=== PATIENT | male | born 1945 | race Caucasian/White ===

== ENCOUNTER 2017-11-13 09:02 | Outpatient (CLI) | payer MEDICARE ==
--- NOTE | 2017-11-13 12:52 | XRAY Report ---
TWO-VIEW CHEST: 11/13/2017 CLINICAL INDICATION: Cough, fever. COMPARISON: 02/02/2006 FINDINGS: Frontal and lateral views of the chest demonstrate a normal cardiac silhouette. The lungs are clear. No effusion or pneumothorax is present. IMPRESSION: NORMAL CHEST. TD: 11/13/2017 12:51
== END 2017-11-13 09:03 | disposition home or self-care (01) ==
LOC: DI.S 09:02
PROVIDERS: ATTEND Nurse Practitioner Family
DX: R05 Cough (principal); R50.9 Fever, unspecified
CPT/HCPCS: 71046

== ENCOUNTER 2017-12-18 10:07 | Outpatient (CLI) | payer MEDICARE ==
--- NOTE | 2017-12-18 15:36 | MRI Report ---
EXAM: LEFT ANKLE/HINDFOOT MRI WITHOUT CONTRAST EXAM DATE: 12/18/2017 10:20 AM. CLINICAL HISTORY: History of left ankle fusion. Increasing pain. COMPARISON: Radiographs 10/22/2017. TECHNIQUE: Multiplanar, multisequence T1-weighted and fluid-sensitive sequences of the ankle/hindfoot without contrast. Other: None. FINDINGS: : Susceptibility artifact from internal fixation hardware at the distal tibia and fibula si gnificantly limits evaluation of that region. Bones: Postsurgical changes of distal fibular excision and arthrodesis at the tibiotalar joint. Ill-defined ovoid and linear focus of T1 hypointense and fluid sensitive hyperintense signal partiall y visualized in the medullary cavity distal tibial diaphysis measuring 2.5 cm in craniocaudal length (sagittal images 14). Moderate bone marrow edema partially visualized at the subtalar joint, likely degenerative. 1.4 cm os trigonum partially visualized. Possible bone marrow edema in the ossicles. Articular Cartilage: At least partial-thickness loss partially visualized at the subtalar joint. Mild cartilage loss in the midfoot. Ligaments: Significantly limited evaluation due to fixation hardware. Visualized portions of the delt oid and spring ligament are intact. Anterior Tendons: The tibialis anterior, extensor hallucis longus, and extensor digitorum longus tend ons are unremarkable. Medial Tendons: Tibialis posterior and flexor digitorum tendons are unremarkable. Mild thickening of the flexor hallucis longus tendon at the level of the calcaneus. Lateral Tendons: Limited evaluation due to artifact at the distal fibula. Mild thickening of the tere neus longus tendon at the tibial tubercle. Achilles Tendon: Minimal thickening. Musculature: No gross fatty atrophy or muscle edema. Other: No large joint effusion. Artifact obscures the sinus tarsi. Limited evaluation of the tarsal t unnel. Limited evaluation of the plantar fascia due to the [id number]. The subcutaneous tissues are unrem arkable. IMPRESSION: 1. Susceptibility artifact from fusion hardware at the tibiotalar joint significantly limits evaluati on of that region. 2. Ill-defined 2.5 cm region of marrow signal abnormality in the distal tibia. This is nonspecific an d may be postsurgical versus possible bone infarct. 3. 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 4. 1.4 cm os trigonum with possible micromotion. 5. Mild peroneus longus tendinopathy. 6. Minimal Achilles tendinopathy. [facility] MUSCULOSKELET[facility]IOLOGY SECTION Referring Provider Line: [phone] SITE ID: [id number]
== END 2017-12-18 10:08 | disposition home or self-care (01) ==
LOC: DI 10:07
PROVIDERS: ATTEND Registered Nurse
DX: M19.071 Primary osteoarthritis, right ankle and foot (principal); M67.972 Unspecified disorder of synovium and tendon, left ankle and foot; Z98.1 Arthrodesis status

== ENCOUNTER 2018-08-29 08:26 | Emergency (ER) | payer BC, MEDICARE ==
[2018-08-29] MEDS ORDERED: BENZONATATE 100 MG CAPSULE PO STA (08:48)
[2018-08-29] MEDS ORDERED: DEXAMETHASONE 10 MG/ML VIAL PO STA (08:48)
--- NOTE | 2018-08-29 08:51 | ED Physician Documentation ---
PD HPI URI - Stated complaint Stated Complaint: COUGH - Chief complaint Chief Complaint: Resp - History obtained from History obtained from: Patient, Family - History of Present Illness Timing - onset: How many weeks ago (1) Timing duration: Weeks (1) Timing details: Gradual onset, Still present Associated symptoms: Nasal congestion, Rhinorrhea, Sore throat, Dry cough Contributing factors: Sick contact Improves by: Rest, Medication Similar symptoms before: Diagnosis (bronchitis) Recently seen: Not recently seen - Additional information Additional information: 72-year-old male who does get bronchitis periodically, has developed a cough about 1 week ago and associated with this he has had some coughing paroxysms. Last night his coughing paroxysm was continuous until about 4 AM when he got up and went into his living room to sit up in his easy chair. This did help with his cough. He has noted that periodically his cough will be worse with the if he is laying down or worse when he sitting up. He notes a cough with deep breathing and feels the cough is coming from his central chest. Review of Systems Constitutional: denies: Fever, Chills, Myalgias Eyes: denies: Decreased vision Ears: denies: Ear pain Nose: reports: Rhinorrhea / runny nose, Congestion Throat: reports: Sore throat Cardiac: denies: Chest pain / pressure, Palpitations, Pedal edema, Calf pain Respiratory: reports: Cough. denies: Dyspnea, Wheezing GI: denies: Abdominal Pain, Nausea, Vomiting : denies: Dysuria, Frequency PD PAST MEDICAL HISTORY - Present Medications Home Medications: Ambulatory Orders Medication Instructions Recorded Confirmed Azithromycin [Zithromax] 250 mg PO DAILY #6 tablet 08/29/18 Benzonatate [Tessalon Perle] 100 - 200 mg PO TID PRN #30 capsule 08/29/18 Lisinopril 40 mg PO DAILY 08/29/18 08/29/18 - Allergies Allergies/Adverse Reactions: Allergies Allergy/AdvReac Type Severity Reaction Status Date / Time Penicillins Allergy Unknown Verified 08/29/18 08:58 PD ED PE NORMAL - Vitals Vital signs reviewed: Yes (hypertensive ) - General General: Alert and oriented X 3, No acute distress, Well developed/nourished, Other (The patient's coughing paroxysm has halted. ) - HEENT HEENT: Atraumatic, PERRL, EOMI, Other (The right TM is clear the left is dull, e rythematous over the umbo with rounding of the umbo. ) - Neck Neck: Supple, no meningeal sign, No bony TTP - Cardiac Cardiac: RRR, No murmur - Respiratory Respiratory: No respiratory distress, Clear bilaterally - Abdomen Abdomen: Soft, Non tender - Back Back: No CVA TTP, No spinal TTP - Derm Derm: Normal color, Warm and dry, No rash - Extremities Extremities: No deformity, No edema - Neuro Neuro: Alert and oriented X 3, sliver lap tender 2-12 intact, No motor deficit, No sensory deficit, Normal speech Eye Opening: Spontaneous Motor: Obeys Commands Verbal: Oriented GCS Score: 15 - Psych Psych: Normal mood, Normal affect Results - Vitals Vitals: Vital Signs - 24 hr 08/29/18 08:35 Temperature 37.3 C Heart Rate 78 Respiratory 18 Rate Blood Pressure 167/90 H O2 Saturation 97 Oxygen O2 Source Room air - Rads (name of study) 2 veiw chest Radiology: Prelim report reviewed (Impression: 1. No acute disease in the chest.), EMP read indepedently, See rad report PD MEDICAL DECISION MAKING - ED course Complexity details: reviewed results, re-evaluated patient, considered differential, d/w patient, d/w family ED course: Previously well 72-year-old male has developed coughing paroxysms and on examination has left otitis media. He is administered dexamethasone 10 mg orally and x-ray of his chest is obtained. Departure - Departure Disposition: 01 Home, Self Care Clinical Impression: Otitis media Qualifiers: Otitis media type: suppurative Chronicity: acute Laterality: left Recurrence: not specified as recurrent Spontaneous tympanic membrane rupture: without spontaneous rupture Qualified Code(s): H66.002 - Acute suppurative otitis media without spontaneous rupture of ear drum, left ear Condition: Stable Instructions: ED Otitis Media Acute Adult Follow-Up: Lashon Hilario, [employer] [Primary Care Provider] - Prescriptions: Azithromycin [Zithromax] 250 mg PO DAILY #6 tablet Benzonatate [Tessalon Perle] 100 - 200 mg PO TID PRN #30 capsule PRN Reason: Cough
[2018-08-29] MEDS ORDERED: CHERRY SYRUP 10 ML UDC PO ONE (09:08)
--- NOTE | 2018-08-29 09:11 | XRAY Report ---
Reason: cant stop coughing Procedure Date: 08/29/2018 Accession Number: [id number] / [id number] Procedure: XR - Chest 2 View X-Ray CPT Code: 10940 FULL RESULT: EXAM: CHEST RADIOGRAPHY EXAM DATE: 08/29/2018 08:58 AM. CLINICAL HISTORY: Cant stop coughing. COMPARISON: CHEST 2 VIEW 11/13/2017 9:32 AM. TECHNIQUE: 2 views. FINDINGS: Lungs/Pleura: No focal opacities evident. No pleural effusion. No pneumothorax. Normal volumes. Mediastinum: Heart size is normal. Aorta is tortuous. Pulmonary arteries are prominent, as before. Other: Degenerative changes of the thoracic spine. Levoscoliosis of the thoracic spine. IMPRESSION: 1. No acute disease in the chest. [facility]
[2018-08-29 09:41] VITALS: BP 150/80
== END 2018-08-29 09:51 | disposition home or self-care (01) ==
LOC: ED 08:26
DX: H66.002 Acute suppurative otitis media without spontaneous rupture of ear drum, left ear (principal); R05 Cough; J34.89 Other specified disorders of nose and nasal sinuses
CPT/HCPCS: 71046; 99282; 99283; A9270

== ENCOUNTER 2019-09-08 20:13 | Emergency (ER) | payer MEDICARE, OTHER ==
--- NOTE | 2019-09-08 21:24 | ED Physician Documentation ---
PD HPI ABD PAIN - Stated complaint Stated Complaint: CONSTIPATION X7DAYS - Chief complaint Chief Complaint: Abd Pain - History obtained from History obtained from: Patient (He had foot surgery 6 days ago, has not had a bowel movement since the day prior to the surgery despite trying MiraLAX, Dulcolax, magnesium citrate. Was not having any issues before the night but now has cramping.) Review of Systems Constitutional: denies: Fever, Chills Cardiac: reports: Reviewed and negative Respiratory: reports: Reviewed and negative GI: denies: Nausea, Vomiting, Diarrhea, Hematemesis, Bloody / black stool PD PAST MEDICAL HISTORY - Past Medical History Past Medical History: Yes Cardiovascular: Hypertension, High cholesterol - Past Surgical History Past Surgical History: Yes - Present Medications Home Medications: Ambulatory Orders Medication Instructions Recorded Confirmed lisinopriL [Lisinopril] 40 mg PO DAILY 08/29/18 08/29/18 HYDROmorphone [Dilaudid] 2 - 4 mg PO Q4-6H 09/08/19 09/08/19 Physical Therapy 1 unit TD ONCE #1 09/08/19 Simvastatin 40 mg PO 09/08/19 09/08/19 - Allergies Allergies/Adverse Reactions: Allergies Allergy/AdvReac Type Severity Reaction Status Date / Time Penicillins Allergy Unknown Verified 08/29/18 08:58 - Social History Does the pt smoke?: No Smoking Status: Never smoker Does the pt drink ETOH?: No Does the pt have substance abuse?: No Substance Use and Type: Marijuana - Immunizations Immunizations are current?: Yes PD ED PE NORMAL - Vitals Vital signs reviewed: Yes - General General: Alert and oriented X 3, No acute distress - Abdomen Abdomen: Normal bowel sounds, Soft, Non tender - Rectal Rectal: Other (Firm fecal impaction in the vault, enema was placed during exam.) - Neuro Neuro: Alert and oriented X 3, Normal speech Results - Vitals Vitals: Vital Signs - 24 hr 09/08/19 20:16 Heart Rate 80 Respiratory 22 Rate Blood Pressure 121/65 O2 Saturation 100 Oxygen O2 Source Room air PD MEDICAL DECISION MAKING - ED course ED course: 73-year-old gentleman with a fecal impaction, he had significant results and felt much better after an enema. Of note he has been pretty much bedbound for the last week, I encouraged him to increase his activity noting that he needs to be nonweightbearing on the left lower extremity after the surgery, but I think if he were able to become more active his overall recovery will be faster. Departure - Departure Disposition: 01 Home, Self Care Clinical Impression: Fecal impaction Condition: Good Record reviewed to determine appropriate education?: Yes Instructions: ED Impaction Fecal Treated Prescriptions: Physical Therapy 1 unit TD ONCE #1 Comments: Call your doctor to arrange a follow-up appointment, make the next available appointment. In the interim, return anytime if worse or if new symptoms develop.
[2019-09-08 22:02] VITALS: BP 136/77
== END 2019-09-08 21:55 | disposition home or self-care (01) ==
LOC: ED 20:13
DX: K56.41 Fecal impaction (principal); I10 Essential (primary) hypertension
CPT/HCPCS: 99282; 99283

== ENCOUNTER 2021-11-20 10:48 | Outpatient (CLI) | payer MEDICARE, OTHER ==
--- NOTE | 2021-11-20 12:49 | Ultrasound Report ---
PROCEDURE: Aorta Screening INDICATIONS: SCREENING FOR AAA TECHNIQUE: Real time scanning was performed of the aorta and iliac arteries, with image documentatio n. COMPARISON: None FINDINGS: Aorta: Proximal aortic diameter measures 2.8 x 2.8 cm. Mid-aorta measures 2 x 2.1 cm. Distal aorti c diameter is 1.7 x 1.8 cm. Iliac arteries: Right common iliac artery measures 1.1 x 1.1 cm. Left common iliac artery measures 1.2 x 1.2 cm. IMPRESSION: No abdominal aortic aneurysm. Reviewed by: Ren Hoff MD on 11/20/2021 12:47 PM PDT Approved by: Ren Hoff MD on 11/20/2021 12:47 PM PDT Station ID: [id number]
== END 2021-11-20 10:49 | disposition home or self-care (01) ==
LOC: DI 10:48
PROVIDERS: ATTEND Registered Nurse
DX: Z13.6 Encounter for screening for cardiovascular disorders (principal)

== ENCOUNTER 2021-11-22 07:37 | Outpatient (CLI) | payer MEDICARE, OTHER ==
[2021-11-22 14:36] LABS: BASOPHILS # (AUTO) 0.1 10^3/uL (0.0-0.1); BASOPHILS % (AUTO) 1.2 %; EOSINOPHILS # (AUTO) 0.2 10^3/uL (0.0-0.7); EOSINOPHILS % (AUTO) 3.3 %; HCT - HEMATOCRIT 41.8 % (42.0-52.0); HGB - HEMOGLOBIN 13.9 g/dL (14.0-18.0); LYMPHOCYTES # (AUTO) 1.8 10^3/uL (1.5-3.5); LYMPHOCYTES % (AUTO) 27.1 %; MEAN CORPUSCULAR HEMOGLOBIN 30.4 pg (27.0-31.0); MEAN CORPUSCULAR HGB CONC 33.3 g/dL (32.0-36.0); MEAN CORPUSCULAR VOLUME 91.5 fL (80.0-94.0); MEAN PLATELET VOLUME 11.2 fL (7.4-11.4); MONOCYTES % (AUTO) 14.4 %; NEUTROPHILS # (AUTO) 3.5 10^3/uL (1.5-6.6); NEUTROPHILS % (AUTO) 53.5 %; PLT - PLATELET COUNT 219 10^3/uL (130-450); RED BLOOD COUNT 4.57 10^6/uL (4.70-6.10); RED CELL DISTRIBUTION WIDTH 13.3 % (12.0-15.0); WHITE BLOOD COUNT 6.6 x10^3/uL (4.8-10.8)
[2021-11-22 15:38] LABS: ALBUMIN 3.6 g/dL (3.2-5.5); ALBUMIN/GLOBULIN RATIO 1.2 (1.0-2.2); ALKALINE PHOSPHATASE 55 IU/L (42-121); ALT ALANINE AMINOTRANSFERASE 21 IU/L (10-60); AST ASPARTATE AMINOTRANSFERASE 18 IU/L (10-42); BILIRUBIN,TOTAL 0.7 mg/dL (0.2-1.0); BUN - BLOOD UREA NITROGEN 23 mg/dL (6-20); CALCIUM 9.4 mg/dL (8.5-10.3); CARBON DIOXIDE - CO2 27 mmol/L (21-32); CHLORIDE 105 mmol/L (101-111); CHOL/HDL RATIO 3.2 (<5.0); CHOLESTEROL 151 mg/dL; CREATININE 1.7 mg/dL (0.6-1.2); GFR - MDRD 39 (>89); GLUCOSE 89 mg/dL (70-100); HDL CHOLESTEROL 47 mg/dL; LDL CHOLESTEROL,CALCULATED 74 mg/dL; LDL/HDL RATIO 1.6 (<3.6); POTASSIUM 4.3 mmol/L (3.5-5.0); SODIUM 140 mmol/L (135-145); TOTAL PROTEIN 6.6 g/dL (6.7-8.2); TRIGLYCERIDES 152 mg/dL; VLDL CHOLESTEROL 30 mg/dL
[2021-11-22 20:28] LABS: ESTIMATED AVERAGE GLUCOSE 114 mg/dL (70-100); HEMOGLOBIN A1c% 5.6 % (4.27-6.07)
== END 2021-11-22 07:38 | disposition home or self-care (01) ==
LOC: LAB.S 07:37
PROVIDERS: ATTEND Registered Nurse
DX: I12.9 Hypertensive chronic kidney disease with stage 1 through stage 4 chronic kidney disease, or unspecified chronic kidney disease (principal); N18.30 Chronic kidney disease, stage 3 unspecified; E78.5 Hyperlipidemia, unspecified; R73.01 Impaired fasting glucose
CPT/HCPCS: 36415; 80053; 80061; 83036; 83721; 85025

== ENCOUNTER 2023-05-13 10:50 | Outpatient (CLI) | payer MEDICARE, OTHER ==
--- NOTE | 2023-05-13 16:01 | XRAY Report ---
PROCEDURE: Shoulder 3 View LT INDICATIONS: LEFT SHOULDER PAIN TECHNIQUE: 3 views of the shoulder were acquired. COMPARISON: None. FINDINGS: Bones: No fractures or dislocations. Moderate degenerative changes of the glenohumeral and acromioc lavicular joints. No suspicious bony lesions. Visualized ribs appear intact. Soft tissues: No suspicious soft tissue calcifications. The visualized lungs are within normal limi ts. IMPRESSION: No acute bony abnormality. Moderate degenerative changes of the glenohumeral and acromioclavicular [place]on ints. Reviewed by: Santo Pollard MD on 05/13/2023 3:59 PM PDT Approved by: Santo Pollard MD on 05/13/2023 3:59 PM PDT Station ID: [id number]
== END 2023-05-13 10:51 | disposition home or self-care (01) ==
LOC: DI 10:50
PROVIDERS: ATTEND Registered Nurse
DX: M19.012 Primary osteoarthritis, left shoulder (principal)

== ENCOUNTER 2023-10-19 10:41 | Outpatient (CLI) | payer MEDICARE, OTHER ==
[2023-10-19 11:14] LABS: CALCIUM 9.8 mg/dL (8.5-10.3); POTASSIUM 4.2 mmol/L (3.5-4.5)
== END 2023-10-19 10:42 | disposition home or self-care (01) ==
LOC: LAB 10:41
PROVIDERS: ATTEND Nurse Practitioner Family
DX: I10 Essential (primary) hypertension (principal)
CPT/HCPCS: 36415; 80048